=== PATIENT | female | born 1980 | race Hispanic/Latino ===

== ENCOUNTER 2018-06-16 18:05 | Observation (INO) | payer MEDICAID, OTHER ==
[~2018-06-16] VITALS: Ht 154.9 cm; Wt 60.3 kg
[2018-06-16 19:21] LABS: BASOPHILS % (AUTO) 0.6 % (0.0-5.0); EOSINOPHILS % (AUTO) 1.8 % (0.0-8.0); HEMATOCRIT 42.9 % (36-48); LYMPHOCYTES % (AUTO) 33.6 % (21.0-51.0); MEAN CORPUSCULAR HEMOGLOBIN 31.6 pg (27.0-33.0); MEAN CORPUSCULAR VOLUME 92.7 fL (79-99); MONOCYTES % (AUTO) 5.7 % (3.0-13.0); NEUTROPHILS % (AUTO) 58.3 % (40.0-77.0); PLATELET COUNT (AUTO) 223 K/uL (130-400); RED BLOOD CELL COUNT(AUTO) 4.63 MIL/uL (4.00-5.50); RED CELL DISTRIBUTION WIDTH 13.4 % (11.0-15.5); WHITE BLOOD COUNT (AUTO) 8.1 K/uL (4.8-10.8)
[2018-06-16 19:23] LABS: APPEARANCE,URINE Clear (CLEAR); BILIRUBIN,URINE Negative (NEGATIVE); COLOR,URINE Yellow (YELLOW); GLUCOSE, URINE (UA) Negative (NEGATIVE); KETONES,URINE Negative (NEGATIVE); LEUKOCYTE ESTERASE ,URINE Small (NEGATIVE); NITRATE,URINE Negative (NEGATIVE); OCCULT BLOOD,URINE Trace (NEGATIVE); PH,URINE 8.5 (5.0-8.0); PROTEIN,URINE Negative (NEGATIVE); UROBILINOGEN,URINE 0.2 mg/dL (0.2-1.0)
[2018-06-16 19:42] LABS: CARBON DIOXIDE 27 mmol/L (21-32); CHLORIDE 107 mmol/L (101-111); CREATININE 0.5 mg/dL (0.5-1.5); GLOMERULAR FILTR. RATE CALC 148 mL/min (>60); GLUCOSE,RANDOM 84 mg/dL (70-105); SODIUM SERUM 140 mmol/L (136-145); UREA NITROGEN, BLOOD 9 mg/dL (7-18)
[2018-06-16 19:46] LABS: ALANINE AMINOTRANSFERASE 30 U/L (12-78); ALBUMIN 3.3 g/dL (3.5-5.0); ASPARTATE AMINOTRANSFERASE 30 U/L (10-37); BILIRUBIN,TOTAL 0.5 mg/dL (0.2-1.0); INR 0.95 (0.85-1.15); PARTIAL THROMBOPLASTIN TIME 30.1 SEC (26.3-35.5); TOTAL PROTEIN, SERUM 6.6 g/dL (6.0-8.3)
[2018-06-16 19:53] LABS: CRP QUANTITATIVE < 2.00 mg/L (0.00-9.0)
[2018-06-16 19:57] LABS: RBC,URINE None Seen /HPF (0-1)
[2018-06-16 19:58] LABS: BACTERIA,URINE Few /HPF (None Seen)
[2018-06-16 20:28] LABS: ERYTHROCYTE SEDIMENTATION RATE 4 MM/HR (0-20)
[2018-06-16] MEDS ORDERED: SODIUM CHLORIDE 0.9% 1000ML 1,000 ML IV ONE (21:52)
[2018-06-16] MEDS ORDERED: ONDANSETRON HCL 4 MG/2 ML VIAL ONE (21:52)
[2018-06-16 22:21] LABS: GLUCOSE, CSF 59 mg/dL (40-70); TOTAL PROTEIN, CSF 21 mg/dL (15-45)
[2018-06-16 22:31] LABS: APPEARANCE,CSF CLEAR (CLEAR); COLOR,CSF COLORLESS (COLORLESS); CSF TUBE NUMBER 1
[2018-06-16 22:32] LABS: APPEARANCE2,CSF CLEAR (CLEAR); COLOR2,CSF COLORLESS (COLORLESS); CSF 2ND TUBE NUMBER 4; RED BLOOD CELL1,CSF 0 CMM (0-0); WHITE BLOOD CELL1,CSF 0 CMM (0-5)
[2018-06-17 01:10] VITALS: BP 116/67
[2018-06-17] MEDS ORDERED: ACETAMINOPHEN 325 MG TAB PO PRN (01:30)
[2018-06-17] MEDS ORDERED: ONDANSETRON HCL 4 MG/2 ML VIAL IV PRN (01:30)
[2018-06-17] MEDS ORDERED: NAPROXEN 500 MG TABLET PO PRN (01:30)
[2018-06-17 01:51] LABS: AMPHET/METH SCREEN,URINE NEGATIVE (NEGATIVE); BARBITURATE SCREEN, URINE NEGATIVE (NEGATIVE); BENZODIAZEPINES SCREEN,URINE NEGATIVE (NEGATIVE); CANNABINOID SCREEN,URINE NEGATIVE (NEGATIVE); COCAINE SCREEN,URINE NEGATIVE (NEGATIVE); OPIATE SCREEN,URINE NEGATIVE (NEGATIVE); PHENCYCLIDINE SCREEN,URINE NEGATIVE (NEGATIVE)
[2018-06-17] MEDS: SODIUM CHLORIDE 0.9% 1000ML 1,000 ML IV SCH ×3 (02:02→22:50)
[2018-06-17 03:57] LABS: HEMATOCRIT 41.5 % (36-48); MEAN CORPUSCULAR HGB CONC 34.3 g/dL (32.0-36.0); MEAN CORPUSCULAR VOLUME 93.2 fL (79-99); PLATELET COUNT (AUTO) 232 K/uL (130-400); RED BLOOD CELL COUNT(AUTO) 4.45 MIL/uL (4.00-5.50); RED CELL DISTRIBUTION WIDTH 13.3 % (11.0-15.5); WHITE BLOOD COUNT (AUTO) 8.8 K/uL (4.8-10.8)
[2018-06-17 04:00] VITALS: BP 96/59
[2018-06-17 04:11] LABS: ALBUMIN 2.9 g/dL (3.5-5.0); BILIRUBIN,TOTAL 0.5 mg/dL (0.2-1.0); CREATININE 0.7 mg/dL (0.5-1.5); MAGNESIUM 1.8 mg/dL (1.80-2.40); POTASSIUM 3.6 mmol/L (3.5-5.1)
[2018-06-17] MEDS: PANTOPRAZOLE SODIUM 40 MG TABLET.DR PO SCH (08:14)
[2018-06-17] MEDS: ENOXAPARIN SODIUM 30 MG/0.3 ML SQ SCH ×2 (08:25→10:17)
[2018-06-17] MEDS ORDERED: POTASSIUM CHLORIDE 20 MEQ ERTAB PO SCH (08:30)
[2018-06-17 09:42] LABS: CRP QUANTITATIVE 5.6 mg/L (0.00-9.0); THYROID STIMULATING HORMONE 2.94 uIU/mL (0.36-3.74)
[2018-06-17 11:43] VITALS: BP 90/55
[2018-06-17 16:41] VITALS: BP 108/68
[2018-06-17 20:00] VITALS: BP 101/62
[2018-06-18] VITALS: BP 99/65
[2018-06-18 04:00] VITALS: BP 99/64
[2018-06-18] MEDS: SODIUM CHLORIDE 0.9% 1000ML 1,000 ML IV SCH (06:00)
[2018-06-18 07:42] VITALS: BP 102/63
[2018-06-18] MEDS: PANTOPRAZOLE SODIUM 40 MG TABLET.DR PO SCH (10:13)
[2018-06-18] MEDS: ENOXAPARIN SODIUM 30 MG/0.3 ML SQ SCH (10:16)
[2018-06-18 11:18] VITALS: BP 103/63
== END 2018-06-18 17:30 | disposition home or self-care (01) ==
LOC: EDH 18:05 → EDHIP 18:06 → 4AH 06-17 00:37
PROVIDERS: ADMIT Internal Medicine; ATTEND Internal Medicine
DX: M76.61 Achilles tendinitis, right leg (principal); M76.62 Achilles tendinitis, left leg; R53.1 Weakness; Z82.3 Family history of stroke; Z82.49 Family history of ischemic heart disease and other diseases of the circulatory system; Z83.3 Family history of diabetes mellitus; Z82.0 Family history of epilepsy and other diseases of the nervous system; Z87.891 Personal history of nicotine dependence; Z90.49 Acquired absence of other specified parts of digestive tract; Z79.899 Other long term (current) drug therapy; Z23 Encounter for immunization
CPT/HCPCS: 36415 ×2; 62272; 72148; 73630 ×2; 80053 ×2; 80305; 81001; 81025; 82085; 82550 ×2; 82607; 82945; 83735; 83874 ×2; 84157; 84443; 85025; 85027; 85610; 85651 ×2; 85730; 86038; 86140 ×2; 87071; 87088; 87147; 87205; 89051 ×2; 90471; 93970; 96372 ×2; 97039 ×2; 97116 ×4; 97161; 99285; G0378 ×47; G8978; G8979; G8980; G8981; G8982; G8983; J1650 ×3; J2405; J7030 ×4; Q2038; 96360; 96361

== ENCOUNTER 2019-02-08 20:27 | Emergency (ER) | payer MEDICAID ==
[2019-02-08 21:18] LABS: HCG,QUAL RESULT NEGATIVE (NEGATIVE)
[2019-02-08] MEDS ORDERED: METHYLPREDNISOLONE SOD SUCC 125MG/2ML VIAL ONE (21:20)
[2019-02-08] MEDS ORDERED: KETOROLAC TROMETHAMINE 60 MG/2 ML VIAL ONE (21:20)
[2019-02-08] MEDS ORDERED: ORPHENADRINE CITRATE 30 MG/ML ML ONE (21:20)
[2019-02-08 21:23] LABS: APPEARANCE,URINE Clear (CLEAR); BILIRUBIN,URINE Negative (NEGATIVE); COLOR,URINE Yellow (YELLOW); GLUCOSE, URINE (UA) Negative (NEGATIVE); KETONES,URINE Negative (NEGATIVE); LEUKOCYTE ESTERASE ,URINE Trace (NEGATIVE); NITRATE,URINE Negative (NEGATIVE); OCCULT BLOOD,URINE Negative (NEGATIVE); PROTEIN,URINE Negative (NEGATIVE)
[2019-02-08 21:38] LABS: BACTERIA,URINE Few /HPF (None Seen); RBC,URINE 0-1 /HPF (0-1); WBC,URINE 0-1 /HPF (0-1)
== END 2019-02-08 22:13 | disposition home or self-care (01) ==
LOC: EDH 20:27
DX: M54.16 Radiculopathy, lumbar region (principal); Z79.899 Other long term (current) drug therapy; Z90.49 Acquired absence of other specified parts of digestive tract; Z98.890 Other specified postprocedural states
CPT/HCPCS: 81001; 81025; 96372 ×3; 99284; J1885; J2360; J2930